=== PATIENT | female | born 1960 | race Caucasian/White ===

== ENCOUNTER 2021-04-18 10:05 | Outpatient (CLI) | payer MEDICARE, SELFPAY ==
--- NOTE | ~2021-04-18 | US_ITS ---
EXAMINATION: US soft tissue head and neck DATE: 04/18/2021 10:43 INDICATION: Right neck lump. TECHNIQUE: Multiple grayscale and Doppler ultrasound images of the neck were obtained. COMPARISON: None FINDINGS: There is no abnormal mass or lymphadenopathy in the patient's area of concern in right neck . IMPRESSION: 1. No abnormal mass or lymphadenopathy in the patient's area of concern in right neck. Reviewed, dictated and finalized at location A. IMPRESSION: 1. No abnormal mass or lymphadenopathy in the patient's area of concern in righ t neck.
== END 2021-04-18 10:06 ==
LOC: MICIMG 10:06
PROVIDERS: Visit Provider Internal Medicine
DX: R22.1 Localized swelling, mass and lump, neck (principal)
CPT/HCPCS: 76536

== ENCOUNTER 2021-04-25 11:40 | Outpatient (CLI) | payer MEDICARE, SELFPAY ==
--- NOTE | ~2021-04-25 | US_ITS ---
EXAMINATION: US thyroid EXAM DATE: 04/25/2021 11:57 INDICATION: History thyroid nodules. TECHNIQUE: Multiple grayscale and Doppler images of the thyroid were obtained (by a technologist who performed the scan) and subsequently reviewed. Individual nodules and recommendations may be reporte d in accordance with TI-RADS system as designated by the 2017 ACR White Paper TI-RADS committee. Comp jadyn is made to prior examination from 04/18/2021. FINDINGS: The right thyroid lobe measures 3.2 x 1.0 x 1.2 cm, the left measuring 4.5 x 1.2 x 1.3 cm. There is h eterogeneous thyroid echogenicity with expected amount of vascularity. Mildly heterogeneous region was measured, uncertain whether or not this is a discrete nodule. Dimensi ons obtained at 7 x 4 x 7 mm. IMPRESSION: 1. Heterogeneous thyroid parenchyma with possible right thyroid lobe nodule, likely benign. Return to clinical follow-up and if additional palpable abnormality develops a repeat ultrasound can be obtained. Reviewed, dictated and finalized at location A. IMPRESSION: 1. Heterogeneous thyroid parenchyma with possible right thyroid lobe nodule, l ikely benign. Return to clinical follow-up and if additional palpable abnormality develops a repeat ultrasound can be obtained.
== END 2021-04-25 11:41 ==
LOC: MICIMG 11:41
PROVIDERS: PCP Internal Medicine; Visit Provider Internal Medicine
DX: Z86.39 Personal history of other endocrine, nutritional and metabolic disease (principal)
CPT/HCPCS: 76536

== ENCOUNTER 2021-10-21 10:53 | Outpatient (CLI) | payer MEDICARE, SELFPAY ==
--- NOTE | ~2021-10-21 | XR_ITS ---
EXAMINATION: XR chest 2V EXAM DATE: 10/21/2021 11:11 INDICATION: Cough, COVID-19 virus infection . TECHNIQUE: Frontal and lateral projections of the chest obtained and reviewed. There is no prior abner dy for comparison. FINDINGS: The lungs are clear. There are no pleural effusions. The cardiomediastinal silhouette is within normal limits. There is no pneumothorax suspected. The bones and soft tissues are unremarkab le. IMPRESSION: No acute cardiopulmonary findings. Reviewed, dictated and finalized at location A. H BORING MACHINE OPERATOR
== END 2021-10-21 10:54 ==
PROVIDERS: PCP Internal Medicine; Visit Provider Internal Medicine
DX: U07.1 COVID-19 (principal); R05.9 Cough, unspecified
CPT/HCPCS: 71046

== ENCOUNTER 2021-12-17 13:07 | Outpatient (CLI) | payer MEDICARE, SELFPAY ==
--- NOTE | ~2021-12-17 | XR_ITS ---
EXAMINATION: XR ankle RT min 3V INDICATION: Right ankle pain TECHNIQUE: Four views of the right ankle are obtained. COMPARISON: None available FINDINGS: There is soft tissue swelling of ankle. Bone alignment is normal. There is no fracture. IMPRESSION: 1. Soft tissue swelling without acute osseous abnormality. Reviewed, dictated and finalized at location B. ORY SUPERVISOR
--- NOTE | ~2021-12-17 | XR_ITS ---
EXAMINATION: XR foot RT min 3V DATE: 12/17/2021 13:39 INDICATION: Right foot pain TECHNIQUE: Dorsoplantar, lateral, and 2 oblique views of the right foot were obtained. COMPARISON: None. FINDINGS: Bone alignment is normal. There is no fracture. There is mild osteoarthritis of several int erphalangeal joints. An approximately 3 mm linear radiopaque foreign body projects in the plantar sof t tissues adjacent to the proximal shaft of the third proximal phalanx. IMPRESSION: 1. No acute osseous abnormality. 2. 3 mm radiopaque foreign body projecting in the plantar soft tissues adjacent to the third proximal phalanx. Reviewed, dictated and finalized at location B. TE MANAGER
== END 2021-12-17 13:08 ==
PROVIDERS: PCP Internal Medicine; Visit Provider Internal Medicine
DX: M79.671 Pain in right foot (principal); M79.89 Other specified soft tissue disorders
CPT/HCPCS: 73610; 73630

== ENCOUNTER 2022-01-28 16:43 | Outpatient (CLI) | payer MEDICARE, SELFPAY ==
--- NOTE | ~2022-01-28 | XR_ITS ---
EXAMINATION: XR ankle LT min 3V DATE: 01/28/2022 17:31 INDICATION: Left foot and ankle pain TECHNIQUE: Anteroposterior, lateral, mortise, and additional oblique view of the ankle were obtained. COMPARISON: None. FINDINGS: There is no fracture, dislocation, or subluxation of the ankle. There is a fracture at the lateral base of the fifth metatarsal. IMPRESSION: 1. No acute osseous abnormality of the ankle. 2. Fracture at the lateral base of the fifth metatarsal. Reviewed, dictated and finalized at location F.
--- NOTE | ~2022-01-28 | XR_ITS ---
EXAMINATION: XR foot LT min 3V DATE: 01/28/2022 17:31 INDICATION: Left foot pain, initial encounter TECHNIQUE: Dorsoplantar, lateral, and 2 oblique views of the left foot were obtained. COMPARISON: None. FINDINGS: There is an acute, traumatic, closed, oblique, intra-articular fracture at the lateral base of the fifth metatarsal. There also appears to be an avulsion at the lateral aspect of the cuboid. N o additional fracture is identified. There is mild dorsal soft tissue swelling of the foot. IMPRESSION: 1. Fractures of the lateral base of the fifth metatarsal and lateral aspect of the cuboid. Reviewed, dictated and finalized at location F.
== END 2022-01-28 16:44 ==
PROVIDERS: PCP Internal Medicine; Visit Provider Internal Medicine
DX: S92.352A Displaced fracture of fifth metatarsal bone, left foot, initial encounter for closed fracture (principal)
CPT/HCPCS: 73610; 73630

== ENCOUNTER 2022-08-11 11:28 | Inpatient (IN) | payer MEDICARE, SELFPAY ==
--- NOTE | ~2022-08-11 | XR_ITS ---
EXAMINATION: XR barium swallow modified DATE: 08/13/2022 09:47 INDICATION: Dysphagia. TECHNIQUE: The patient was given barium-containing material of multiple consistencies to swallow by t he speech pathologist while I performed fluoroscopy. Fluoroscopy exposure time was 0.9 minutes. The n umber of fluoroscopy images saved to the PACS was 1. Dose-area product was 0.63 Gy-cm^2. FINDINGS: The oral, pharyngeal, and cervical/esophageal stages of the swallow are normal. IMPRESSION: 1. Normal modified barium swallow. 2. Please refer to the speech therapy report for recommendations. Reviewed, dictated and finalized at location A.
--- NOTE | ~2022-08-11 | XR_ITS ---
XR chest 2V DATE: 08/15/2022 08:20 INDICATION: Pneumonia TECHNIQUE: PA and lateral views COMPARISON: 08/11/2022 portable AP chest 08/2022 CT pulmonary scan FINDINGS: There is patchy infiltrate and/atelectasis at the right lung base and left lower lung, more prominent on the left. No pleural effusion or pulmonary vascular congestion or pneumothorax. Normal heart size. Osteopenia. IMPRESSION: Bilateral lower lung infiltrate and/atelectasis, left greater than right Reviewed, dictated and finalized at location A. EL MUCKER
--- NOTE | ~2022-08-11 | XR_ITS ---
EXAMINATION: XR chest 1V portable DATE: 08/11/2022 12:49 INDICATION: Cough and fever. TECHNIQUE: A single frontal view of the chest was obtained. COMPARISON: Chest 2 views 10/21/2021 FINDINGS: There is mild scarring at the lung apices. No pleural effusion or pneumothorax. The heart s ize is normal. IMPRESSION: 1. Mild scarring at the lung apices. Reviewed, dictated and finalized at location A.
--- NOTE | ~2022-08-11 | CT_ITS ---
EXAMINATION: CTA chest abdomen pelvis DATE: 08/11/2022 16:59 INDICATION: Hypoxia. Vomiting. Cough, fever, congestion. History of diabetes, hypertension TECHNIQUE: Computed tomography (CT) of the chest, abdomen and pelvis was performed with 100 CC Omnipa que 350 intravenous contrast. Automated exposure control and iterative reconstruction technique were employed. Exam dose: 443.49 mGy-cm total exam DLP. COMPARISON: 08/11/2022 portable AP chest FINDINGS: There is patchy bilateral lower lobe infiltrate and/or atelectasis. Consider bilateral pneumonia in a ddition to aspiration pneumonitis. Normal heart size. No pericardial or pleural effusion. No thoracic aortic aneurysm or dissection. No central pulmonary embolus. There is mild prominence of the precarinal lymph and to a greater extent subcarinal lymph nodes, like ly reactive. Small sliding hiatal hernia. Hepatic steatosis. No hepatic, splenic, pancreatic, and adrenal or renal space-occupying mass lesion is detected. There is atherosclerotic calcification of the abdominal aorta and iliac arteries but no abdominal aor tic aneurysm. The urinary bladder, uterus and adnexal areas are unremarkable. No bowel obstruction, bowel wall thickening, pneumatosis or intraperitoneal free air is detected. Small fat-containing umbilical hernia. No suspicious osteolytic or osteoblastic lesions. IMPRESSION: Patchy bilateral lower lobe infiltrate and/atelectasis. Consider bilateral pneumonia irma jah aspiration pneumonitis. Probable reactive mild precarinal and subcarinal lymph node prominence No thoracic or abdominal aortic aneurysm Hepatic steatosis No bowel obstruction or free air Reviewed, dictated and finalized at Location A. Reviewed, dictated and finalized at location A. IMPRESSION: Patchy bilateral lower lobe infiltrate and/atelectasis. Consider b ilateral pneumonia versus aspiration pneumonitis. Probable reactive mild precarinal and subcarinal lymph node prominence No thoracic or abdominal aortic aneurysm Hepatic steatosis No bowel obstruction or free air
[2022-08-11 11:35] VITALS: BP 114/49; PULSE 82; RESP 20; TEMP 36.3; O2SAT 94
--- NOTE | 2022-08-11 11:43 | ECG_ITS ---
Measurements Intervals [place] Rate: 81 P: 75 CA: 145 QRS: 5 QRSD: 93 T: 50 QT: 388 QTc: 451 Interpretive Statements SINUS RHYTHM BASELINE WANDER- V3, V6 NORMAL ECG NO PREVIOUS ECG AVAILABLE FOR COMPARISON Electronically Signed On 08-11-2022 12:56:07 CDT by Yuan Bailey D.O.
[2022-08-11 12:24] LABS: Basophils Percent Auto 0.3 % (0.2-1.2); Eosinophils Percent Auto 0.3 % (0-4.4); Hematocrit 40.2 % (37.0-47.0); Immature Granulocyte Absolute 0.05 K/mm3 (0.00-0.031); Immature Granulocyte Percent A 0.4 % (0-0.5); Lymphocytes Absolute Auto 1.43 K/mm3 (0.9-3.2); Lymphocytes Percent Auto 10.1 % (18.3-44.2); Mean Corpuscular HGB Conc 32.3 g/dl (32-36); Mean Corpuscular Hemoglobin 30.4 pg (26-34); Mean Corpuscular Volume 94.1 fl (80-100); Mean Platelet Volume 11.1 fl (7.4-10.4); Monocytes Absolute Auto 0.8 K/mm3 (0.1-0.6); Monocytes Percent Auto 5.7 % (2.6-8.5); Neutrophils Absolute Auto 11.8 K/mm3 (1.3-6.7); Neutrophils Percent Auto 83.2 % (45.5-73.1); Platelet Count Result 275 k/mm3 (150-375); Red Blood Count 4.27 M/mm3 (4.2-5.4); Red Cell Distribution Width 13.2 % (11.5-14.5); White Blood Count 14.1 K/mm3 (4.5-10.0)
[2022-08-11 12:34] LABS: Lactic Acid Reflex 1.1 mmol/L (0.7-2.0)
[2022-08-11 12:37] LABS: Partial Thromboplastin Time 28.7 SECONDS (22.3-36.8); Prothrombin Time 13.2 Seconds (11.1-14.7)
[2022-08-11 12:38] LABS: Alanine Aminotransferase 28 U/L (6-35); Albumin Level 4.7 g/dL (3.5-5.1); Alkaline Phosphatase 93 U/L (38-126); Anion Gap 22 mmol/L (8-16); Aspartate Amino Transferase 29 U/L (14-36); Bilirubin,Total 0.7 mg/dL (0.2-1.3); Blood Urea Nitrogen 13 mg/dL (7-17); CRP 3.7 mg/dL (<1.0); Carbon Dioxide 15 mmol/L (22-30); Chloride 99 mmol/L (98-107); Estimated CRCL calculation 67 ml/min; Estimated Glomerular Filt Rate > 60; Glucose 140 mg/dL (65-110); Potassium 3.8 mmol/L (3.4-5.0); Sodium 136 mmol/L (137-145)
[2022-08-11 12:45] LABS: Troponin I < 0.012 ng/mL (0.000-0.034)
--- NOTE | 2022-08-11 13:06 | ED.GENADULT ---
HPI - General Adult General Chief complaint: Weakness Stated complaint: NOT FEELING WELL , GENERALIZED WEAKNESS, COUGH Time Seen by Provider: 08/11/22 12:38 History of Present Illness HPI narrative: 62-year-old female presented to the emergency department evaluation of approximately 5 days of worsening fatigue with associated cough and shortness of breath. Patient did test herself for COVID on the first day of this and was negative. Patient is vaccinated against COVID and against influenza. Patient does have a new O2 requirement. Upon arrival to the emergency department patient was saturating in the 80s on room air. Related Data Home Medications Medication Instructions Recorded Confirmed atorvastatin 80 mg PO DAILY 08/11/22 08/11/22 bupropion HCl 75 mg tablet 150 mg PO DAILY 08/11/22 08/11/22 dapagliflozin 5 mg tablet (Farxiga) 5 mg PO DAILY 08/11/22 08/11/22 fluticasone propionate 50 50 mcg intranasal DAILY 08/11/22 08/11/22 mcg/actuation nasal spray,suspension insulin glargine 100 unit/mL 60 unit subcut DAILY 08/11/22 08/11/22 subcutaneous cartridge lisinopril 20 mg tablet 10 mg PO BID 08/11/22 08/11/22 metoprolol succinate 25 mg 25 mg PO DAILY 08/11/22 08/11/22 tablet,extended release 24 hr multivitamin 5 tablet PO DAILY 08/11/22 08/11/22 omeprazole 40 mg capsule,delayed 40 mg PO DAILY PRN Heartburn 08/11/22 08/11/22 release Allergies Allergy/AdvReac Type Severity Reaction Status Date / Time codeine AdvReac Nausea and Verified 08/11/22 18:21 Vomiting Review of Systems Review of Systems: CONSTITUTIONAL: Denies fever, chills, or sweats. EYES: Denies visual changes, redness, or discharge. ENT: Denies rhinorrhea, congestion, sore throat, or otalgia. CARDIOVASCULAR: Denies chest pain, palpitations, or edema. RESPIRATORY: See HPI GASTROINTESTINAL: Denies abdominal pain, nausea, vomiting, or diarrhea. GENITOURINARY: Denies dysuria or hematuria. SKIN: Denies rash or itching. MUSCULOSKELETAL: Denies back pain, joint pain, or myalgia. NEUROLOGIC: Denies headache, numbness, or weakness. [facility] Past Medical History Medical History (Updated 08/11/22 @ 16:04 by Yana Warner PA-C) delivery delivered Depression Diabetes Hypercholesteremia Hypertension Surgical History Surgical History (Updated 08/11/22 @ 15:02 by Yana Warner PA-C) H/O oophorectomy History of appendectomy Family History Family History Mother Heart disease Hypertension Father Heart disease Diabetes mellitus Hypertension Grandparent Diabetes mellitus Sibling Diabetes mellitus Social History Social History (Updated 08/11/22 @ 15:06 by Yana Warner PA-C) Smoking packs per day: 0 Smoking cigarettes per day: 0.0 Years smoked: 0 Smoking pack-years: 0.00 Smoking status: Never smoker Alcohol intake: never Substance use: never Has the Lack of Transportation Kept You From Medical Appointments or From Getting Medications?: No Within the Past 12 Months, Were You Worried Whether Your Food Would Run Out Before You Got Money to Buy More?: Never True What is Your Housing Situation Today?: I Have Housing Are You Worried That in the Next 2 Months, You May Not Have Your Own Housing to Live In?: No Do You Have Trouble Paying Your Heating Or Electricity Bill?: No Do You Have Trouble Paying For Medicines?: No Are You Currently Unemployed and Looking for Work?: No Highest Level of Education Completed: High School Diploma/GED Do You Have Trouble With Childcare or the Care of a Family Member?: No Living arrangements: with family Additional living arrangements comments: daughter and 1 grandchild Occupation/Education: retired Additional occupation/education comments: on SS Gender identity (if verbalized by the patient): Female Sexual Orientation (if Verbalized by the Patient): Straight or Heterosexual Spiritual care
[2022-08-11 13:48] LABS: Influenza A QL RT-PCR Negative (Negative); Influenza B QL RT-PCR Negative (Negative); SARS-CoV-2 RNA PCR Negative
[2022-08-11] MEDS: SODIUM CHLORIDE 0.9% IV 1,000 ML 999 ML IV CONT ×2 (14:11→15:42)
[2022-08-11 14:31] LABS: Appearance Urine Clear (Clear); Bilirubin Urine 2+ (Negative); Blood Urine Negative (Negative); Color Urine Yellow (Yellow); Glucose Urine UA 2+ mg/dL (Negative); Ketones Urine 4+ mg/dL (Negative); Leukocyte Esterase Ur Negative LEU/UL (Negative); Nitrate Urine Negative (Negative); Protein Urine 1+ mg/dL (Negative); Specific Grav Ur >= 1.030 (1.001-1.035); pH Urine 5.5 (5.0-9.0)
--- NOTE | 2022-08-11 14:35 | PM.IMHP ---
H&P: HPI History of Present Illness Date/Time: 08/11/22 14:35 Meds Home Medications and Allergies Allergies Allergy/AdvReac Type Severity Reaction Status Date / Time codeine AdvReac Nausea and Verified 08/11/22 14:15 Vomiting Vital Signs Vital Signs - 24 hr 08/11/22 11:35 Temperature 36.3 C L Pulse Rate 82 Respiratory Rate 20 Blood Pressure 114/49 L Pulse Oximetry 94 Oxygen Delivery Nasal Cannula Oxygen Flow Rate 4 H&P: Results Labs Labs: Short CBC 08/11/22 Range/Units 12:14 WBC 14.1 H (4.5-10.0) K/mm3 Hgb 13.0 (12.0-15.0) g/dL Hct 40.2 (37.0-47.0) % Plt Count 275 (150-375) k/mm3 BMP 08/11/22 12:14 Sodium 136 L Potassium 3.8 Chloride 99 Carbon Dioxide 15 L BUN 13 Creatinine 0.60 L Glucose 140 H Calcium 9.0 Cardiac Enzymes 08/11/22 Range/Units 12:14 Troponin I < 0.012 (0.000-0.034) ng/mL Liver Function 08/11/22 Range/Units 12:14 Total Bilirubin 0.7 (0.2-1.3) mg/dL AST 29 (14-36) U/L ALT 28 (6-35) U/L Alkaline Phosphatase 93 (38-126) U/L Albumin 4.7 (3.5-5.1) g/dL Urine 08/11/22 Range/Units 14:13 Urine Color Yellow (Yellow) Urine Appearance Clear (Clear) Urine pH 5.5 (5.0-9.0) Ur Specific [place] >= 1.030 (1.001-1.035) Urine Protein 1+ H (Negative) mg/dL Urine Glucose (UA) 2+ H (Negative) mg/dL
[2022-08-11 14:38] LABS: Bacteria Urine Trace /hpf; Mucus Urine Rare /lpf; Squamous Epithelial Cell Urine Occasional /hpf (Few); WBC Urine 0-3 /hpf
[2022-08-11 14:43] LABS: Add Urine Microscopic? YES
--- NOTE | 2022-08-11 14:49 | PM.IMHP ---
H&P: HPI History of Present Illness Date/Time: 08/11/22 14:49 Chief Complaint: cough, weakness Narrative: Bri Mendieta is a 62 yo female that presented to the ED with cough that started 5-6 days ago and is progressively worsening. She has been taking OTC cold and flu medication without relief. Associated symptoms include: headache, weakness, dizziness, fever, nasal congestion, abdominal pain, nausea, vomiting, decreased appetite. Symptoms are worse at night. Patient states that this is the worse I've ever felt in my life . Abdominal pain and nausea wax and wane and pt is unsure if it was from not eating or from medication. Review of Systems Constitutional: Constitutional: Reports body ache(s), Reports chills, Reports difficulty sleeping, Reports fatigue, Reports lethargy and Reports weakness ENT: Denies dysphagia, Reports nasal congestion and Reports nasal discharge Cardiovascular: Cardiovascular: Reports chest pain, Denies pedal edema, Denies leg edema, Reports lightheadedness and Reports palpitations Respiratory: Respiratory: Reports chest congestion, Reports cough, Reports dyspnea and Reports wheezing Gastrointestinal: Gastrointestinal: Denies constipation, Denies diarrhea, Reports nausea and Reports vomiting Genitourinary: Genitourinary: Denies nocturia, Denies dysuria, Reports urinary incontinence and Denies urinary urgency [facility] Past Medical History Medical History (Updated 08/11/22 @ 16:04 by Yana Warner PA-C) delivery delivered Depression Diabetes Hypercholesteremia Hypertension Surgical History Surgical History (Updated 08/11/22 @ 15:02 by Yana Warner PA-C) H/O oophorectomy History of appendectomy Family History Family History (Updated 08/11/22 @ 15:03 by Yana Warner PA-C) Mother Heart disease Hypertension Father Heart disease Diabetes mellitus Hypertension Grandparent Diabetes mellitus Sibling Diabetes mellitus Social History Social History (Updated 08/11/22 @ 15:06 by Yana Warner PA-C) Smoking packs per day: 0 Smoking cigarettes per day: 0.0 Years smoked: 0 Smoking pack-years: 0.00 Smoking status: Never smoker Alcohol intake: never Has the Lack of Transportation Kept You From Medical Appointments or From Getting Medications?: Yes Within the Past 12 Months, Were You Worried Whether Your Food Would Run Out Before You Got Money to Buy More?: Never True What is Your Housing Situation Today?: I Have Housing Are You Worried That in the Next 2 Months, You May Not Have Your Own Housing to Live In?: No Do You Have Trouble Paying Your Heating Or Electricity Bill?: No Do You Have Trouble Paying For Medicines?: No Are You Currently Unemployed and Looking for Work?: No Highest Level of Education Completed: Grade School Do You Have Trouble With Childcare or the Care of a Family Member?: No Living arrangements: with family Additional living arrangements comments: daughter and 1 grandchild Occupation/Education: retired Additional occupation/education comments: on SS Gender identity (if verbalized by the patient): Female Sexual Orientation (if Verbalized by the Patient): Straight or Heterosexual Spiritual care concerns: No Meds Home Medications and Allergies Allergies Allergy/AdvReac Type Severity Reaction Status Date / Time codeine AdvReac Nausea and Verified 08/11/22 14:15 Vomiting Vital Signs Vital Signs - 24 hr 08/11/22 11:35 Temperature 97.4 F L Pulse Rate 82 Respiratory Rate 20 Blood Pressure 114/49 L Pulse Oximetry 94 Oxygen Delivery Nasal Cannula Oxygen Flow Rate 4 Exam Const: Other: Patient laying in bed and appears acutely ill. HENMT: Face/Nose/Sinus: Normal nares present Other: tacky mucous membranes Eyes: General: appearance normal, both eyes and all related structures Sclera: sclerae normal EOM: EOMs intact bilaterally Neck: Neck: supple and no JVD Lymphati
[2022-08-11 15:02] LABS: RSV RNA, RT-PCR Negative (Negative)
[2022-08-11 16:19] LABS: Alveolar/Arterial O2 Gradient 124.9 mmHg; Base Excess ABG -10.9 mEq/l (+/-2.0); Carboxyhemoglobin 0.3 % THb (0-2.0); Fractional Inspired Oxygen 32 %; HCO3 ABG 13.7 mEq/l (22.0-26.0); Methemoglobin ABG 0.1 %THb (0-1.5); Oxygen Content ABG 15.8 %vol (16.0-22.0); Oxygen Saturation ABG 93.4 % (95.0-100.0); Oxyhemoglobin 91.6 % THb (90.0-100.0); PCO2 ABG 27.4 mmHg (35.0-45.0); PO2 ABG 71.2 mmHg (80.0-100.0); PO2 FiO2 Ratio Arterial Blood 2.22 %; Total Hemoglobin 12.2 g/dL (12.0-18.0); pH ABG 7.318 (7.350-7.450)
[2022-08-11 16:21] LABS: Device NASAL CANNULA; Modified Allen's Test Pass; Site Drawn RIGHT RADIAL
[2022-08-11 16:44] LABS: Lactic Acid Reflex 1.2 mmol/L (0.7-2.0)
[2022-08-11 16:56] LABS: NT Pro B Type Natriuretic Pept 193 pg/mL (5-100)
[2022-08-11 17:17] VITALS: O2SAT 98
[2022-08-11 17:29] LABS: Procalcitonin 0.2 ng/mL
[2022-08-11] MEDS: ONDANSETRON INJ 4 MG/2 ML VIAL IV PUSH (17:46)
[2022-08-11] MEDS: ENOXAPARIN 40 MG/0.4 ML SYRINGE SUB-Q (17:46)
[2022-08-11 18:09] VITALS: BMI 26.9
[2022-08-11] MEDS: methylPREDNISolone SOD SUCC 125 MG VIAL IV PUSH (18:23)
[2022-08-11 18:30] VITALS: O2SAT 98
--- NOTE | 2022-08-11 18:53 | ADMGEN ---
This patient, Bri Mendieta, was admitted to Medical Room 244-. Patient/family oriented to hospital policies and general routines including ID bracelet, bed and alarms, visiting hours, pain management, procedures, bathroom and other care routines, personal items, smoking policy, room service/diet, and visiting hours. Information on how to activate the Rapid Response Team has been discussed. Patient/Family are encouraged to report perceived risks to care and to ask questions if they do not understand what they are told or what they should do.
[2022-08-11 21:05] VITALS: PULSE 88; RESP 18; O2SAT 92
[2022-08-11] MEDS: ALBUTEROL SULFATE NEB 2.5 MG/3 ML INH INHALATION (21:05)
[2022-08-11] MEDS: IPRATROPIUM BR 0.02% INH SOLN 0.5 MG/2.5 ML VIAL INHALATION (21:05)
[2022-08-11 21:15] VITALS: PULSE 91; RESP 18
[2022-08-11] MEDS: methylPREDNISolone SOD SUCC 125 MG VIAL 60 MG IV PUSH (21:54)
[2022-08-11 23:15] VITALS: BP 116/55; PULSE 86; RESP 16; TEMP 36.4; O2SAT 94
[2022-08-12] VITALS (16 sets, daily range): BP systolic 105–113; BP diastolic 44–60; PULSE 78–87; RESP 16–18; TEMP 36.1–36.6; O2SAT 94–97
[2022-08-12] MEDS: IPRATROPIUM BR 0.02% INH SOLN 0.5 MG/2.5 ML VIAL INHALATION ×4 (03:08→20:00)
[2022-08-12] MEDS: ALBUTEROL SULFATE NEB 2.5 MG/3 ML INH INHALATION ×4 (03:08→20:00)
[2022-08-12] MEDS: methylPREDNISolone SOD SUCC 125 MG VIAL 60 MG IV PUSH ×3 (05:38→21:29)
[2022-08-12 06:07] LABS: Basophils Absolute Auto 0.1 K/mm3 (0.0-0.1); Basophils Percent Auto 0.5 % (0.2-1.2); Hematocrit 38.1 % (37.0-47.0); Hemoglobin 11.8 g/dL (12.0-15.0); Immature Granulocyte Absolute 0.04 K/mm3 (0.00-0.031); Immature Granulocyte Percent A 0.3 % (0-0.5); Lymphocytes Absolute Auto 0.89 K/mm3 (0.9-3.2); Lymphocytes Percent Auto 7.3 % (18.3-44.2); Mean Corpuscular Hemoglobin 30.4 pg (26-34); Mean Corpuscular Volume 98.2 fl (80-100); Monocytes Absolute Auto 0.3 K/mm3 (0.1-0.6); Monocytes Percent Auto 2.3 % (2.6-8.5); Neutrophils Percent Auto 89.6 % (45.5-73.1); Platelet Count Result 267 k/mm3 (150-375); Red Blood Count 3.88 M/mm3 (4.2-5.4); Red Cell Distribution Width 13.6 % (11.5-14.5); White Blood Count 12.2 K/mm3 (4.5-10.0)
[2022-08-12 06:14] LABS: Alanine Aminotransferase 23 U/L (6-35); Alkaline Phosphatase 75 U/L (38-126); Anion Gap 25 mmol/L (8-16); Aspartate Amino Transferase 26 U/L (14-36); Bilirubin,Total 0.6 mg/dL (0.2-1.3); Blood Urea Nitrogen 19 mg/dL (7-17); Calcium 8.1 mg/dL (8.4-10.2); Carbon Dioxide 7 mmol/L (22-30); Chloride 104 mmol/L (98-107); Estimated CRCL calculation 46 ml/min; Estimated Glomerular Filt Rate > 60; Glucose 295 mg/dL (65-110); Magnesium 2.4 mg/dL (1.6-2.3); Potassium 4.3 mmol/L (3.4-5.0); Sodium 136 mmol/L (137-145)
[2022-08-12 08:30] LABS: Lactic Acid Reflex 1.7 mmol/L (0.7-2.0)
[2022-08-12] MEDS: ENOXAPARIN 40 MG/0.4 ML SYRINGE SUB-Q (08:49)
[2022-08-12] MEDS: PANTOPRAZOLE SODIUM IV 40 MG VIAL IV PUSH (08:50)
[2022-08-12] MEDS: AMPICILLIN SULB 3 GM/NS 100 ML 3 GM/100 ML VIAL IVPB ×3 (08:50→18:35)
[2022-08-12] MEDS: SODIUM BICARBONATE 8.4% 150 MEQ in DEXTROSE 5% 1,000 ML 950 ML 75 MEQ IV CONT (09:35)
--- NOTE | 2022-08-12 09:59 | PCSTNOTE ---
Please refer to the Bedside Swallow Evaluation in the EMR. Please note, silent aspiration cannot be ruled out at bedside.
[2022-08-12 10:42] LABS: Glucose Point of Care 430 mg/dl (65-105)
[2022-08-12] MEDS: buPROPion HCL XL (24 HR) 150 MG TABCR PO (10:58)
--- NOTE | 2022-08-12 11:03 | P.PNIM_ITS ---
Progress Note: A&P Assessment and Plan (1) Acute respiratory failure: Code(s): J96.00 - Acute respiratory failure, unspecified whether with hypoxia or hypercapnia Status: Acute Assessment and Plan: * pt states she is feeling better today compared to day of admission * pt no longer tripoding * pt on 2L of O2; O2 saturation of 96% * pt still experiencing some labored breathing and unable to complete full sentences but has improved from admission * XR chest showed scarring in lung apices * CTA results = bilateral lobar pneumonia vs. aspiration pneumonia * ABG results = anion gap metabolic acidosis * blood cultures pending * supplemental oxygen weaned to maintain a saturation >93% * continue to trend O2 saturation * adjust therapy accordingly (2) Pneumonia: Code(s): J18.9 - Pneumonia, unspecified organism Status: Acute Assessment and Plan: * CTA results = bilateral lobar pneumonia vs. aspiration pneumonia * pt put on unasyn 3 Gm/Ns 100 mls @200 mls/hr IVPB Q6hr and azithromycin 500 mg in 150 mls @250 mls/hr IVPB Q24h4 * awaiting sputum cultures * speech therapy consulted, due to possibility of aspiration pneumonia, recommended barium swallow * barium swallow results pending * recheck labs in the AM (3) High anion gap metabolic acidosis: Code(s): E87.29 - Other acidosis Status: Acute Assessment and Plan: * ABG reveals high anion gap metabolic acidosis * prescribed sodium bicarbonate 150 meq in dextrose 1,100 mls @ 75 mls/hr IV cont * high anion gap metabolic acidosis likely caused by infection * Sodium bicarbonate in D5 discontinued due to patients hyperglycemia. Rechecking labs. Will likely restart NaHCO3 in sterile water if HCO3 is still low. * HCO3 was 10 on recheck. Prescribed NaHCO3 150 meq in sterile water 1,100 mls @ 50 mls/hr IV CONT. * plan to recheck labs in the AM (4) Nausea & vomiting: Code(s): R11.2 - Nausea with vomiting, unspecified Status: Acute Assessment and Plan: * pt feeling better * prescribed zofran 4 mg PRN (5) Dizziness and giddiness: Code(s): R42 - Dizziness and giddiness Status: Acute Assessment and Plan: * pt feeling better today (6) Dysuria: Code(s): R30.0 - Dysuria Status: Acute Assessment and Plan: * pt expressed she believes this is due to ketones in urine * going to recheck urine (7) Diabetes: Code(s): E11.9 - Type 2 diabetes mellitus without complications Status: Acute Assessment and Plan: * pt receiving Lantus 10 units daily and NovoLog 1-6 units SUB-Q TIDWM * q6hr bedside glucose monitoring * pt given 5 units of NovoLog SUB-Q at 1115 due to BG @ 430 * recheck BG after 1 hour was 404 * pt given 6 units of NovoLog SUB-Q and 1L bolus of NS at 1230 due to BG @ 404 * recheck BG after 1 hour was 375 * reassess after NS bolus is finished * BG after NS bolus is 315 * plan to give 10 units of NovoLog SUB-Q (8) Hypertension: Code(s): I10 - Essential (primary) hypertension Status: Acute Assessment and Plan: * due to patient low BP in the hospital, her lisinopril was held. * pt still taking metoprolol * BP monitoring accordingly
--- NOTE | 2022-08-12 11:03 | PM.IMPN ---
Progress Note: A&P Assessment and Plan (1) Acute respiratory failure: Code(s): J96.00 - Acute respiratory failure, unspecified whether with hypoxia or hypercapnia Status: Acute Assessment and Plan: pt states she is feeling better today compared to day of admission pt no longer tripoding pt on 2L of O2; O2 saturation of 96% pt still experiencing some labored breathing and unable to complete full sentences but has improved from admission XR chest showed scarring in lung apices CTA results = bilateral lobar pneumonia vs. aspiration pneumonia ABG results = anion gap metabolic acidosis blood cultures pending supplemental oxygen weaned to maintain a saturation >93% continue to trend O2 saturation adjust therapy accordingly (2) Pneumonia: Code(s): J18.9 - Pneumonia, unspecified organism Status: Acute Assessment and Plan: CTA results = bilateral lobar pneumonia vs. aspiration pneumonia pt put on unasyn 3 Gm/Ns 100 mls @200 mls/hr IVPB Q6hr and azithromycin 500 mg in 150 mls @250 mls/hr IVPB Q24h4 awaiting sputum cultures speech therapy consulted, due to possibility of aspiration pneumonia, recommended barium swallow barium swallow results pending recheck labs in the AM (3) High anion gap metabolic acidosis: Code(s): E87.29 - Other acidosis Status: Acute Assessment and Plan: ABG reveals high anion gap metabolic acidosis prescribed sodium bicarbonate 150 meq in dextrose 1,100 mls @ 75 mls/hr IV cont high anion gap metabolic acidosis likely caused by infection Sodium bicarbonate in D5 discontinued due to patients hyperglycemia. Rechecking labs. Will likely restart NaHCO3 in sterile water if HCO3 is still low. HCO3 was 10 on recheck. Prescribed NaHCO3 150 meq in sterile water 1,100 mls @ 50 mls/hr IV CONT. plan to recheck labs in the AM (4) Nausea & vomiting: Code(s): R11.2 - Nausea with vomiting, unspecified Status: Acute Assessment and Plan: pt feeling better prescribed zofran 4 mg PRN (5) Dizziness and giddiness: Code(s): R42 - Dizziness and giddiness Status: Acute Assessment and Plan: pt feeling better today (6) Dysuria: Code(s): R30.0 - Dysuria Status: Acute Assessment and Plan: pt expressed she believes this is due to ketones in urine going to recheck urine (7) Diabetes: Code(s): E11.9 - Type 2 diabetes mellitus without complications Status: Acute Assessment and Plan: pt receiving Lantus 10 units daily and NovoLog 1-6 units SUB-Q TIDWM q6hr bedside glucose monitoring pt given 5 units of NovoLog SUB-Q at 1115 due to BG @ 430 recheck BG after 1 hour was 404 pt given 6 units of NovoLog SUB-Q and 1L bolus of NS at 1230 due to BG @ 404 recheck BG after 1 hour was 375 reassess after NS bolus is finished BG after NS bolus is 315 plan to give 10 units of NovoLog SUB-Q (8) Hypertension: Code(s): I10 - Essential (primary) hypertension Status: Acute Assessment and Plan: due to patient low BP in the hospital, her lisinopril was held. pt still taking metoprolol BP monitoring accordingly (9) GERD (gastroesophageal reflux disease): Code(s): K21.9 - Gastro-esophageal reflux disease without esophagitis Status: Acute Assessment and Plan: protonix 40 mg IVPB qd Time Spent With Patient Time with patient: Greater than 35 minutes Subjective Date/time seen: 08/12/22 11:03 Interval history: Patient is resting comfortably in bed. She is experiencing some shortness of breath while walking and talking. Review of Systems Constitutional: Constitutional: Reports lethargy and Reports weakness ENT: Reports dysphagia Comments: Having some dysphagia while solid foods. Has had this problem
[2022-08-12] MEDS: INSULIN GLARGINE (*BKC) 100 UNITS/ML 10 UNITS SUB-Q (11:05)
[2022-08-12] MEDS: ATORVASTATIN 40 MG TABLET 80 MG PO (11:05)
[2022-08-12] MEDS: INSULIN ASPART (*BKC) 100 UNITS/ML SUB-Q ×2 (11:16→17:23)
[2022-08-12 12:09] LABS: Glucose Point of Care 404 mg/dl (65-105)
[2022-08-12] MEDS: INSULIN ASPART (*BKC) 100 UNITS/ML 6 UNITS SUB-Q (13:18)
[2022-08-12] MEDS: SODIUM CHLORIDE 0.9% IV 1,000 ML 500 ML IV CONT (13:20)
[2022-08-12 14:17] LABS: Glucose Point of Care 375 mg/dl (65-105)
--- NOTE | 2022-08-12 14:24 | PC.NURSE ---
On 08/12/22, the student, [Helen Yoon], provided care and completed [facility] documentation on this patient. I have reviewed the student's documentation and agree with the findings.
[2022-08-12 14:55] LABS: Anion Gap 20 mmol/L (8-16); Blood Urea Nitrogen 21 mg/dL (7-17); Calcium 8.1 mg/dL (8.4-10.2); Carbon Dioxide 10 mmol/L (22-30); Chloride 104 mmol/L (98-107); Estimated CRCL calculation 41 ml/min; Estimated Glomerular Filt Rate 56; Glucose 370 mg/dL (65-110); Potassium 4.2 mmol/L (3.4-5.0); Sodium 134 mmol/L (137-145)
[2022-08-12 15:47] LABS: Glucose Point of Care 315 mg/dl (65-105)
[2022-08-12] MEDS: INSULIN ASPART (*BKC) 100 UNITS/ML 10 UNITS SUB-Q (16:09)
[2022-08-12 16:59] LABS: Glucose Point of Care 330 mg/dl (65-105)
[2022-08-12] MEDS: SODIUM BICARBONATE 8.4% 150 MEQ in WATER, STERILE FOR INJECTION 950 ML 50 MEQ IV CONT (17:20)
[2022-08-12] MEDS: INSULIN GLARGINE (*BKC) 100 UNITS/ML 20 UNITS SUB-Q (17:25)
[2022-08-12 18:19] LABS: Appearance Urine Clear (Clear); Bilirubin Urine 1+ (Negative); Blood Urine Negative (Negative); Color Urine Yellow (Yellow); Glucose Urine UA 2+ mg/dL (Negative); Ketones Urine 4+ mg/dL (Negative); Leukocyte Esterase Ur Negative LEU/UL (NEGATIVE); Nitrate Urine Negative (Negative); Protein Urine 1+ mg/dL (Negative); Specific Grav Ur >= 1.030 (1.001-1.035); Urobilinogen Urine 0.2 mg/dL (<2.0); pH Urine 5.5 (5.0-9.0)
[2022-08-12 18:22] LABS: Mucus Urine Rare /lpf; Squamous Epithelial Cell Urine Moderate /hpf (Few); WBC Urine 0-3 /hpf (0-3)
[2022-08-12 18:47] LABS: Add Urine Microscopic? YES
[2022-08-12 22:43] LABS: Glucose Point of Care 237 mg/dl (65-105)
[2022-08-13] VITALS (15 sets, daily range): BP systolic 103–120; BP diastolic 48–55; PULSE 72–96; RESP 16–18; TEMP 36.2–36.4; O2SAT 92–98
[2022-08-13] MEDS: AMPICILLIN SULB 3 GM/NS 100 ML 3 GM/100 ML VIAL IVPB ×5 (00:53→22:56)
[2022-08-13] MEDS: IPRATROPIUM BR 0.02% INH SOLN 0.5 MG/2.5 ML VIAL INHALATION ×4 (02:00→20:09)
[2022-08-13] MEDS: ALBUTEROL SULFATE NEB 2.5 MG/3 ML INH INHALATION ×4 (02:00→20:09)
[2022-08-13 04:45] LABS: Glucose Point of Care 231 mg/dl (65-105)
[2022-08-13 05:52] LABS: Basophils Percent Auto 0.2 % (0.2-1.2); Hematocrit 33.6 % (37.0-47.0); Hemoglobin 11.2 g/dL (12.0-15.0); Immature Granulocyte Absolute 0.06 K/mm3 (0.00-0.031); Immature Granulocyte Percent A 0.5 % (0-0.5); Lymphocytes Absolute Auto 1.02 K/mm3 (0.9-3.2); Lymphocytes Percent Auto 8.6 % (18.3-44.2); Mean Corpuscular HGB Conc 33.3 g/dl (32-36); Mean Corpuscular Hemoglobin 30.1 pg (26-34); Mean Corpuscular Volume 90.3 fl (80-100); Mean Platelet Volume 10.5 fl (7.4-10.4); Monocytes Absolute Auto 0.3 K/mm3 (0.1-0.6); Monocytes Percent Auto 2.9 % (2.6-8.5); Neutrophils Absolute Auto 10.4 K/mm3 (1.3-6.7); Neutrophils Percent Auto 87.8 % (45.5-73.1); Platelet Count Result 281 k/mm3 (150-375); Red Blood Count 3.72 M/mm3 (4.2-5.4); Red Cell Distribution Width 13.4 % (11.5-14.5); White Blood Count 11.8 K/mm3 (4.5-10.0)
[2022-08-13 06:07] LABS: Alanine Aminotransferase 17 U/L (6-35); Albumin Level 3.5 g/dL (3.5-5.1); Alkaline Phosphatase 74 U/L (38-126); Anion Gap 18 mmol/L (8-16); Aspartate Amino Transferase 18 U/L (14-36); Bilirubin,Total 0.4 mg/dL (0.2-1.3); Blood Urea Nitrogen 16 mg/dL (7-17); Calcium 8.1 mg/dL (8.4-10.2); Carbon Dioxide 17 mmol/L (22-30); Chloride 103 mmol/L (98-107); Estimated CRCL calculation 58 ml/min; Estimated Glomerular Filt Rate > 60; Glucose 217 mg/dL (65-110); Magnesium 2.6 mg/dL (1.6-2.3); Potassium 3.9 mmol/L (3.4-5.0); Sodium 138 mmol/L (137-145)
[2022-08-13] MEDS: methylPREDNISolone SOD SUCC 125 MG VIAL 60 MG IV PUSH ×3 (06:25→22:23)
[2022-08-13] MEDS: INSULIN ASPART (*BKC) 100 UNITS/ML SUB-Q ×3 (06:33→17:19)
[2022-08-13 06:41] LABS: Glucose Point of Care 216 mg/dl (65-105)
--- NOTE | 2022-08-13 08:13 | P.PNIM_ITS ---
Progress Note: A&P Assessment and Plan (1) Acute respiratory failure: Code(s): J96.00 - Acute respiratory failure, unspecified whether with hypoxia or hypercapnia Status: Acute Assessment and Plan: 08/13/22 * pt states she is feeling better today compared to yesterday * pt no longer tripoding * pt on 2L of O2; O2 saturation of 93% * Pt is no longer experiencing labored breathing and is able to complete full sentences. She is experiencing shortness of breath with ambulation but this has also improved since yesterday. * XR chest showed scarring in lung apices * CTA results = bilateral lobar pneumonia vs. aspiration pneumonia * ABG results = anion gap metabolic acidosis * blood cultures pending * supplemental oxygen weaned to maintain a saturation >93% * continue to trend O2 saturation * adjust therapy accordingly (2) Pneumonia: Code(s): J18.9 - Pneumonia, unspecified organism Status: Acute Assessment and Plan: 08/13/22 * CTA results = bilateral lobar pneumonia vs. aspiration pneumonia * pt put on unasyn 3 Gm/Ns 100 mls @200 mls/hr IVPB Q6hr and azithromycin 500 mg in 150 mls @250 mls/hr IVPB Q24h4 * barium swallow results pending * pt's WBC are trending down * preliminary sputum culture after 48 hrs reveal no growth * blood cultures pending * overnight pt was prescribed nebulizer treatment of Ipratropium [place] 0.5 mg Q6HRT and Solu-Medrol 60 mg IV push Q8hr. Patients BG will be monitored closely with steroid treatment. (3) High anion gap metabolic acidosis: Code(s): E87.29 - Other acidosis Status: Acute Assessment and Plan: 08/12/22 * ABG reveals high anion gap metabolic acidosis, anion gap of 25 * prescribed sodium bicarbonate 150 meq in dextrose 1,100 mls @ 75 mls/hr IV cont * high anion gap metabolic acidosis likely caused by infection, lactate within normal limits * Sodium bicarbonate in D5 discontinued due to patients hyperglycemia. Rechecking labs. Will likely restart NaHCO3 in sterile water if HCO3 is still low. * HCO3 was 10 on recheck. Prescribed NaHCO3 150 meq in sterile water 1,100 mls @ 50 mls/hr IV CONT. * plan to recheck labs in the AM 08/13/22 * AM labs reveal bicarb at 17 and anion gap trending down * Plan to continue monitoring, discontinuing bicarb and will reassess this afternoon (4) Nausea & vomiting: Code(s): R11.2 - Nausea with vomiting, unspecified Status: Acute Assessment and Plan: 08/13/22 * pt feeling better * prescribed zofran 4 mg PRN (5) Dizziness and giddiness: Code(s): R42 - Dizziness and giddiness Status: Acute Assessment and Plan: 08/13/22 * pt states this has resolved. (6) Dysuria: Code(s): R30.0 - Dysuria Status: Acute Assessment and Plan: 08/13/22 * Patients urine is unchanged from admission * no evidence of UTI (7) Diabetes: Code(s): E11.9 - Type 2 diabetes mellitus without complications Status: Acute Assessment and Plan: 08/12/22 * pt receiving Lantus 10 units daily and NovoLog 1-6 units SUB-Q TIDWM * q6hr bedside glucose monitoring * pt given 5 units of NovoLog SUB-Q at 1115 due to BG @ 430 * recheck BG after 1 hour was 404 * pt given 6 units of NovoLog SUB-Q and 1L bolus of NS at 1
--- NOTE | 2022-08-13 08:13 | PM.IMPN ---
Progress Note: A&P Assessment and Plan (1) Acute respiratory failure: Code(s): J96.00 - Acute respiratory failure, unspecified whether with hypoxia or hypercapnia Status: Acute Assessment and Plan: 08/13/22 pt states she is feeling better today compared to yesterday pt no longer tripoding pt on 2L of O2; O2 saturation of 93% Pt is no longer experiencing labored breathing and is able to complete full sentences. She is experiencing shortness of breath with ambulation but this has also improved since yesterday. XR chest showed scarring in lung apices CTA results = bilateral lobar pneumonia vs. aspiration pneumonia ABG results = anion gap metabolic acidosis blood cultures pending supplemental oxygen weaned to maintain a saturation >93% continue to trend O2 saturation adjust therapy accordingly (2) Pneumonia: Code(s): J18.9 - Pneumonia, unspecified organism Status: Acute Assessment and Plan: 08/13/22 CTA results = bilateral lobar pneumonia vs. aspiration pneumonia pt put on unasyn 3 Gm/Ns 100 mls @200 mls/hr IVPB Q6hr and azithromycin 500 mg in 150 mls @250 mls/hr IVPB Q24h4 barium swallow results pending pt's WBC are trending down preliminary sputum culture after 48 hrs reveal no growth blood cultures pending overnight pt was prescribed nebulizer treatment of Ipratropium [place] 0.5 mg Q6HRT and Solu-Medrol 60 mg IV push Q8hr. Patients BG will be monitored closely with steroid treatment. (3) High anion gap metabolic acidosis: Code(s): E87.29 - Other acidosis Status: Acute Assessment and Plan: 08/12/22 ABG reveals high anion gap metabolic acidosis, anion gap of 25 prescribed sodium bicarbonate 150 meq in dextrose 1,100 mls @ 75 mls/hr IV cont high anion gap metabolic acidosis likely caused by infection, lactate within normal limits Sodium bicarbonate in D5 discontinued due to patients hyperglycemia. Rechecking labs. Will likely restart NaHCO3 in sterile water if HCO3 is still low. HCO3 was 10 on recheck. Prescribed NaHCO3 150 meq in sterile water 1,100 mls @ 50 mls/hr IV CONT. plan to recheck labs in the AM 08/13/22 AM labs reveal bicarb at 17 and anion gap trending down Plan to continue monitoring, discontinuing bicarb and will reassess this afternoon (4) Nausea & vomiting: Code(s): R11.2 - Nausea with vomiting, unspecified Status: Acute Assessment and Plan: 08/13/22 pt feeling better prescribed zofran 4 mg PRN (5) Dizziness and giddiness: Code(s): R42 - Dizziness and giddiness Status: Acute Assessment and Plan: 08/13/22 pt states this has resolved. (6) Dysuria: Code(s): R30.0 - Dysuria Status: Acute Assessment and Plan: 08/13/22 Patients urine is unchanged from admission no evidence of UTI (7) Diabetes: Code(s): E11.9 - Type 2 diabetes mellitus without complications Status: Acute Assessment and Plan: 08/12/22 pt receiving Lantus 10 units daily and NovoLog 1-6 units SUB-Q TIDWM q6hr bedside glucose monitoring pt given 5 units of NovoLog SUB-Q at 1115 due to BG @ 430 recheck BG after 1 hour was 404 pt given 6 units of NovoLog SUB-Q and 1L bolus of NS at 1230 due to BG @ 404 recheck BG after 1 hour was 375 reassess after NS bolus is finished BG after NS bolus is 315 plan to give 10 units of NovoLog SUB-Q 08/13/22 Overnight patient was changed to Lantus 20 units BID NovoLog 3-6 units SUB-Q Q6HR Patients morning glucose was 216 and stable Plan to continue to monitor throughout the day Patient put on diabetic diet after passing speech therapy evaluation (8) Hypertension: Code(s): I10 - Essential (primary) hypertension Status: Chronic Assessment and Plan: 08/13/22 due to patient low BP in the hospital, her lisinopril
[2022-08-13] MEDS: IPRATROPIUM BR 0.02% INH SOLN 0.5 MG/2.5 ML VIAL (08:38)
[2022-08-13] MEDS: METOPROLOL SUCCINATE EXT REL 12.5 MG TABCR PO (09:56)
[2022-08-13] MEDS: ENOXAPARIN 40 MG/0.4 ML SYRINGE SUB-Q (09:57)
[2022-08-13] MEDS: ATORVASTATIN 40 MG TABLET 80 MG PO (09:57)
[2022-08-13] MEDS: buPROPion HCL XL (24 HR) 150 MG TABCR PO (09:57)
[2022-08-13] MEDS: INSULIN GLARGINE (*BKC) 100 UNITS/ML 20 UNITS SUB-Q (09:58)
[2022-08-13] MEDS: PANTOPRAZOLE SODIUM IV 40 MG VIAL IV PUSH (09:58)
--- NOTE | 2022-08-13 10:51 | PCSTNOTE ---
Modified barium swallow study completed. Patient demonstrated swallowing function within normal limits with consistencies tested, including thin, mildly thick, pureed, mixed, and solid. No penetration or aspiration observed. Recommend: Level 6 diet (soft and bite sized) to make chewing and eating easier with patient's level of weakness. No speech therapy recommended. Thank you for the referral of this patient.
[2022-08-13 12:06] LABS: Glucose Point of Care 208 mg/dl (65-105)
--- NOTE | 2022-08-13 13:17 | PC.NURSE ---
On 08/13/22, the student, [Helen Yoon], provided care and completed [facility] documentation on this patient. I have reviewed the student's documentation and agree with the findings.
[2022-08-13 15:43] LABS: Anion Gap 15 mmol/L (8-16); Blood Urea Nitrogen 19 mg/dL (7-17); Carbon Dioxide 19 mmol/L (22-30); Chloride 101 mmol/L (98-107); Estimated CRCL calculation 46 ml/min; Estimated Glomerular Filt Rate > 60; Glucose 340 mg/dL (65-110); Potassium 3.3 mmol/L (3.4-5.0); Sodium 135 mmol/L (137-145)
[2022-08-13] MEDS: POTASSIUM CHLORIDE 20 MEQ TABLET 40 MEQ PO (16:05)
[2022-08-13 17:10] LABS: Glucose Point of Care 258 mg/dl (65-105)
[2022-08-13] MEDS: SODIUM BICARBONATE 8.4% 150 MEQ in WATER, STERILE FOR INJECTION 950 ML 50 MEQ IV CONT (17:19)
[2022-08-13] MEDS: INSULIN GLARGINE (*BKC) 100 UNITS/ML 30 UNITS SUB-Q (17:19)
[2022-08-13 22:17] LABS: Glucose Point of Care 196 mg/dl (65-105)
[2022-08-14] VITALS (8 sets, daily range): BP systolic 132–150; BP diastolic 47–68; PULSE 81–107; RESP 16–18; TEMP 36.1–36.9; O2SAT 93–95
[2022-08-14] MEDS: IPRATROPIUM BR 0.02% INH SOLN 0.5 MG/2.5 ML VIAL INHALATION ×2 (03:20→08:07)
[2022-08-14] MEDS: ALBUTEROL SULFATE NEB 2.5 MG/3 ML INH INHALATION ×2 (03:20→08:07)
[2022-08-14] MEDS: AMPICILLIN SULB 3 GM/NS 100 ML 3 GM/100 ML VIAL IVPB (05:33)
[2022-08-14 05:34] LABS: Basophils Percent Auto 0.2 % (0.2-1.2); Hematocrit 32.8 % (37.0-47.0); Hemoglobin 11.1 g/dL (12.0-15.0); Immature Granulocyte Absolute 0.25 K/mm3 (0.00-0.031); Immature Granulocyte Percent A 2.3 % (0-0.5); Lymphocytes Absolute Auto 0.85 K/mm3 (0.9-3.2); Lymphocytes Percent Auto 7.7 % (18.3-44.2); Mean Corpuscular HGB Conc 33.8 g/dl (32-36); Mean Corpuscular Hemoglobin 30.7 pg (26-34); Mean Corpuscular Volume 90.6 fl (80-100); Mean Platelet Volume 10.6 fl (7.4-10.4); Monocytes Absolute Auto 0.5 K/mm3 (0.1-0.6); Monocytes Percent Auto 4.2 % (2.6-8.5); Neutrophils Absolute Auto 9.4 K/mm3 (1.3-6.7); Neutrophils Percent Auto 85.6 % (45.5-73.1); Platelet Count Result 282 k/mm3 (150-375); Red Blood Count 3.62 M/mm3 (4.2-5.4); Red Cell Distribution Width 13.5 % (11.5-14.5)
[2022-08-14] MEDS: methylPREDNISolone SOD SUCC 125 MG VIAL 60 MG IV PUSH (05:34)
[2022-08-14 06:03] LABS: Alanine Aminotransferase 19 U/L (6-35); Albumin Level 3.6 g/dL (3.5-5.1); Alkaline Phosphatase 74 U/L (38-126); Anion Gap 18 mmol/L (8-16); Aspartate Amino Transferase 21 U/L (14-36); Bilirubin,Total 0.5 mg/dL (0.2-1.3); Blood Urea Nitrogen 13 mg/dL (7-17); Calcium 7.9 mg/dL (8.4-10.2); Carbon Dioxide 22 mmol/L (22-30); Chloride 100 mmol/L (98-107); Estimated CRCL calculation 67 ml/min; Estimated Glomerular Filt Rate > 60; Glucose 158 mg/dL (65-110); Magnesium 2.3 mg/dL (1.6-2.3); Potassium 3.1 mmol/L (3.4-5.0); Sodium 140 mmol/L (137-145)
[2022-08-14 08:54] LABS: Glucose Point of Care 177 mg/dl (65-105)
[2022-08-14] MEDS: INSULIN GLARGINE (*BKC) 100 UNITS/ML 30 UNITS SUB-Q ×2 (09:40→18:07)
[2022-08-14] MEDS: ENOXAPARIN 40 MG/0.4 ML SYRINGE SUB-Q (09:41)
[2022-08-14] MEDS: buPROPion HCL XL (24 HR) 150 MG TABCR PO (09:42)
[2022-08-14] MEDS: PANTOPRAZOLE SODIUM IV 40 MG VIAL IV PUSH (09:42)
[2022-08-14] MEDS: ATORVASTATIN 40 MG TABLET 80 MG PO (09:42)
[2022-08-14] MEDS: METOPROLOL SUCCINATE EXT REL 12.5 MG TABCR PO (09:42)
[2022-08-14] MEDS: POTASSIUM CHLORIDE 20 MEQ TABLET 40 MEQ PO (09:43)
--- NOTE | 2022-08-14 11:17 | P.PNIM_ITS ---
Progress Note: A&P Assessment and Plan (1) Acute respiratory failure: Qualifiers: Respiratory failure complication: hypoxia Qualified Code(s): J96.01 - Acute respiratory failure with hypoxia Code(s): J96.00 - Acute respiratory failure, unspecified whether with hypoxia or hypercapnia Status: Acute Assessment and Plan: 08/13/22 * pt states she is feeling better today compared to yesterday * pt no longer tripoding * pt on 2L of O2; O2 saturation of 93% * Pt is no longer experiencing labored breathing and is able to complete full sentences. She is experiencing shortness of breath with ambulation but this has also improved since yesterday. * XR chest showed scarring in lung apices * CTA results = bilateral lobar pneumonia vs. aspiration pneumonia * ABG results = anion gap metabolic acidosis * blood cultures pending * supplemental oxygen weaned to maintain a saturation >93% * continue to trend O2 saturation * adjust therapy accordingly 08/14/22- patient reports some dyspnea with exertion and persistent coughing fits. Weaned to room air with spO2 95% at rest. Home O2 eval pending. Improving. (2) Pneumonia: Qualifiers: Pneumonia type: due to unspecified organism Laterality: bilateral Lung location: lower lobe of lung Qualified Code(s): J18.9 - Pneumonia, unspecified organism Code(s): J18.9 - Pneumonia, unspecified organism Status: Acute Assessment and Plan: 08/13/22 * CTA results = bilateral lobar pneumonia vs. aspiration pneumonia * pt put on unasyn 3 Gm/Ns 100 mls @200 mls/hr IVPB Q6hr and azithromycin 500 mg in 150 mls @250 mls/hr IVPB Q24h4 * barium swallow results pending * pt's WBC are trending down * preliminary sputum culture after 48 hrs reveal no growth * blood cultures pending * overnight pt was prescribed nebulizer treatment of Ipratropium [place] 0.5 mg Q6HRT and Solu-Medrol 60 mg IV push Q8hr. Patients BG will be monitored closely with steroid treatment. 08/14/22- No fevers in over 24 hours. WBC 11, but patient has been on IV solumedrol since 08/11/22. occasional FERRERA and SOB following coughing. Sputum thick and white, but more productive. modified barium swallow negative for aspiration. Azithromycin 500 mg given 08/11-08/13. Transition to oral Augmentin 875-125 mg PO BID to complete 7-day abx course. (3) High anion gap metabolic acidosis: Code(s): E87.29 - Other acidosis Status: Acute Assessment and Plan: 08/12/22 * ABG reveals high anion gap metabolic acidosis, anion gap of 25 * prescribed sodium bicarbonate 150 meq in dextrose 1,100 mls @ 75 mls/hr IV cont * high anion gap metabolic acidosis likely caused by infection, lactate within normal limits * Sodium bicarbonate in D5 discontinued due to patients hyperglycemia. Rechecking labs. Will likely restart NaHCO3 in sterile water if HCO3 is still low. * HCO3 was 10 on recheck. Prescribed NaHCO3 150 meq in sterile water 1,100 mls @ 50 mls/hr IV CONT. * plan to recheck labs in the AM 08/13/22 * AM labs reveal bicarb at 17 and anion gap trending down * Plan to continue monitoring, discontinuing bicarb and will reassess this afternoon 08/14/22 Resolving. TCO2 22, AG 18, Sodium 140, K 3.1 and replaced with 60 mEQ PO x1. (4) Nausea & vomiting: Code(s): R11.2 - Nausea with vomiting, unspecified Status: Acute Assessment and Plan: 08/13/22 * pt feeling better * prescribed zofran 4 mg PRN 08/14/22 resolved. (5) Dizziness and giddiness: Code(s): R42 - Dizziness
--- NOTE | 2022-08-14 11:17 | PM.IMPN ---
Progress Note: A&P Assessment and Plan (1) Acute respiratory failure: Qualifiers: Respiratory failure complication: hypoxia Qualified Code(s): J96.01 - Acute respiratory failure with hypoxia Code(s): J96.00 - Acute respiratory failure, unspecified whether with hypoxia or hypercapnia Status: Acute Assessment and Plan: 08/13/22 pt states she is feeling better today compared to yesterday pt no longer tripoding pt on 2L of O2; O2 saturation of 93% Pt is no longer experiencing labored breathing and is able to complete full sentences. She is experiencing shortness of breath with ambulation but this has also improved since yesterday. XR chest showed scarring in lung apices CTA results = bilateral lobar pneumonia vs. aspiration pneumonia ABG results = anion gap metabolic acidosis blood cultures pending supplemental oxygen weaned to maintain a saturation >93% continue to trend O2 saturation adjust therapy accordingly 08/14/22- patient reports some dyspnea with exertion and persistent coughing fits. Weaned to room air with spO2 95% at rest. Home O2 eval pending. Improving. (2) Pneumonia: Qualifiers: Pneumonia type: due to unspecified organism Laterality: bilateral Lung location: lower lobe of lung Qualified Code(s): J18.9 - Pneumonia, unspecified organism Code(s): J18.9 - Pneumonia, unspecified organism Status: Acute Assessment and Plan: 08/13/22 CTA results = bilateral lobar pneumonia vs. aspiration pneumonia pt put on unasyn 3 Gm/Ns 100 mls @200 mls/hr IVPB Q6hr and azithromycin 500 mg in 150 mls @250 mls/hr IVPB Q24h4 barium swallow results pending pt's WBC are trending down preliminary sputum culture after 48 hrs reveal no growth blood cultures pending overnight pt was prescribed nebulizer treatment of Ipratropium [place] 0.5 mg Q6HRT and Solu-Medrol 60 mg IV push Q8hr. Patients BG will be monitored closely with steroid treatment. 08/14/22- No fevers in over 24 hours. WBC 11, but patient has been on IV solumedrol since 08/11/22. occasional FERRERA and SOB following coughing. Sputum thick and white, but more productive. modified barium swallow negative for aspiration. Azithromycin 500 mg given 08/11-08/13. Transition to oral Augmentin 875-125 mg PO BID to complete 7-day abx course. (3) High anion gap metabolic acidosis: Code(s): E87.29 - Other acidosis Status: Acute Assessment and Plan: 08/12/22 ABG reveals high anion gap metabolic acidosis, anion gap of 25 prescribed sodium bicarbonate 150 meq in dextrose 1,100 mls @ 75 mls/hr IV cont high anion gap metabolic acidosis likely caused by infection, lactate within normal limits Sodium bicarbonate in D5 discontinued due to patients hyperglycemia. Rechecking labs. Will likely restart NaHCO3 in sterile water if HCO3 is still low. HCO3 was 10 on recheck. Prescribed NaHCO3 150 meq in sterile water 1,100 mls @ 50 mls/hr IV CONT. plan to recheck labs in the AM 08/13/22 AM labs reveal bicarb at 17 and anion gap trending down Plan to continue monitoring, discontinuing bicarb and will reassess this afternoon 08/14/22 Resolving. TCO2 22, AG 18, Sodium 140, K 3.1 and replaced with 60 mEQ PO x1. (4) Nausea & vomiting: Code(s): R11.2 - Nausea with vomiting, unspecified Status: Acute Assessment and Plan: 08/13/22 pt feeling better prescribed zofran 4 mg PRN 08/14/22 resolved. (5) Dizziness and giddiness: Code(s): R42 - Dizziness and giddiness Status: Acute Assessment and Plan: 08/13/22 pt states this has resolved. 08/14/22 secondary to hypoxia and acute infection. Resolved. (6) Dysuria: Code(s): R30.0 - Dysuria Status: Acute Assessment and Plan: 08/13/22 Patients urine is unchanged from admission no evidence of UTI 08/14/22 Resolved. No urinary complaints. (7) Diabetes: Qualifiers: Diabet
[2022-08-14 12:26] LABS: Glucose Point of Care 246 mg/dl (65-105)
[2022-08-14] MEDS: FLUTICASONE PROPIONATE 0.05% NA SPR 16 GM BTL (*BKC) 1 SPRAY NASAL ×2 (12:52→20:47)
[2022-08-14] MEDS: BENZONATATE 100 MG CAPSULE PO (12:52)
[2022-08-14] MEDS: lisinopriL 20 MG TABLET PO (12:52)
[2022-08-14] MEDS: guaiFENesin 12 HR 600 MG TABCR PO ×2 (12:52→20:46)
[2022-08-14] MEDS: INSULIN ASPART (*BKC) 100 UNITS/ML SUB-Q ×2 (12:58→18:06)
[2022-08-14 17:22] LABS: Glucose Point of Care 246 mg/dl (65-105)
[2022-08-14] MEDS: AMOXICILLIN/CLAVULANATE K 875-125 MG TAB 1 TABLET PO (20:46)
[2022-08-14] MEDS: SALINE 0.65% NAS SOLN 44 ML BTL 1 SPRAY NASAL (20:46)
[2022-08-14 22:06] LABS: Glucose Point of Care 202 mg/dl (65-105)
[2022-08-15 06:00] VITALS: BP 132/56; PULSE 77; RESP 16; TEMP 36.3; O2SAT 93
[2022-08-15 06:43] LABS: Anion Gap 12 mmol/L (8-16); Blood Urea Nitrogen 13 mg/dL (7-17); Calcium 7.9 mg/dL (8.4-10.2); Carbon Dioxide 29 mmol/L (22-30); Chloride 99 mmol/L (98-107); Estimated CRCL calculation 78 ml/min; Estimated Glomerular Filt Rate > 60; Glucose 100 mg/dL (65-110); Sodium 140 mmol/L (137-145)
[2022-08-15 06:48] LABS: Basophils Absolute Auto 0.1 K/mm3 (0.0-0.1); Basophils Percent Auto 0.9 % (0.2-1.2); Hematocrit 34.7 % (37.0-47.0); Hemoglobin 11.5 g/dL (12.0-15.0); Immature Granulocyte Percent A 4.7 % (0-0.5); Lymphocytes Absolute Auto 1.96 K/mm3 (0.9-3.2); Lymphocytes Percent Auto 15.2 % (18.3-44.2); Mean Corpuscular HGB Conc 33.1 g/dl (32-36); Mean Corpuscular Hemoglobin 29.7 pg (26-34); Mean Corpuscular Volume 89.7 fl (80-100); Mean Platelet Volume 10.7 fl (7.4-10.4); Monocytes Percent Auto 7.4 % (2.6-8.5); Neutrophils Absolute Auto 9.2 K/mm3 (1.3-6.7); Neutrophils Percent Auto 71.8 % (45.5-73.1); Platelet Count Result 281 k/mm3 (150-375); Red Blood Count 3.87 M/mm3 (4.2-5.4); Red Cell Distribution Width 13.2 % (11.5-14.5); White Blood Count 12.9 K/mm3 (4.5-10.0)
[2022-08-15 08:38] LABS: Glucose Point of Care 57 mg/dl (65-105)
[2022-08-15 08:55] LABS: Glucose Point of Care 79 mg/dl (65-105)
--- NOTE | 2022-08-15 09:44 | PM.DS ---
DS: Admitting Diagnosis Discharge Date 08/15/2022 1055 Admitting Diagnosis Acute respiratory failure with hypoxia Dizziness Nausea and vomiting DS: Discharge Diagnosis Discharge Diagnosis (1) Acute respiratory failure: Qualifiers: Respiratory failure complication: hypoxia Qualified Code(s): J96.01 - Acute respiratory failure with hypoxia Code(s): J96.00 - Acute respiratory failure, unspecified whether with hypoxia or hypercapnia Status: Acute (2) Pneumonia: Qualifiers: Laterality: bilateral Lung location: lower lobe of lung Pneumonia type: due to unspecified organism Qualified Code(s): J18.9 - Pneumonia, unspecified organism Code(s): J18.9 - Pneumonia, unspecified organism Status: Acute (3) High anion gap metabolic acidosis: Code(s): E87.29 - Other acidosis Status: Acute (4) Nausea & vomiting: Code(s): R11.2 - Nausea with vomiting, unspecified Status: Acute (5) Dizziness and giddiness: Code(s): R42 - Dizziness and giddiness Status: Acute (6) Dysuria: Code(s): R30.0 - Dysuria Status: Acute (7) Diabetes: Qualifiers: Diabetes mellitus complication status: with hyperglycemia Diabetes mellitus care home insulin use: with care home use Diabetes mellitus type: type 2 Qualified Code(s): E11.65 - Type 2 diabetes mellitus with hyperglycemia; Z79.4 - intermodal customer service (current) use of insulin Code(s): E11.9 - Type 2 diabetes mellitus without complications Status: Acute (8) Hypertension: Qualifiers: Hypertension type: primary hypertension Qualified Code(s): I10 - Essential (primary) hypertension Code(s): I10 - Essential (primary) hypertension Status: Chronic (9) GERD (gastroesophageal reflux disease): Qualifiers: Esophagitis presence: without esophagitis Qualified Code(s): K21.9 - Gastro-esophageal reflux disease without esophagitis Code(s): K21.9 - Gastro-esophageal reflux disease without esophagitis Status: Chronic DS: Summary Hospital Course Reason for hospitalization: cough, weakness Hospital Course: Bri Mendieta is a 62 yo female with insulin dependent diabetes, hypertension and previous stroke without residual. She presented to the ED with complaints of cough that started 5-6 days prior to admission and progressively worsened. She has been taking OTC cold and flu medication without relief. She reported associated symptoms of headache, weakness, dizziness, fever, nasal congestion, abdominal pain, nausea, vomiting, and decreased appetite.? Her symptoms are worse at night.? Patient reported this is the worse I've ever felt in my life on admission. Her abdominal pain and nausea wax and wane and she was unsure if it was from not eating or from medication.?In the ED, her vitals were temp 97.4F, HR 82, RR 20, BP 114/49, and spO2 94% on 4L nasal cannula. She does not wear oxygen at home. Chest x-ray showed mild scarring of the lung apices but was otherwise without acute infection. She was admitted to the medical floor for further management and evaluation of acute respiratory failure with hypoxia. Acute respiratory failure & multilobar pneumonia: She presented to the hospital with c/o cough, weakness, fever, anorexia, MAN, N/V and dizziness. Chest x-ray was without acute abnormality, however, given her respiratory symptoms, WBC 14, and hypoxemia PaO2 71 on ABG, she was started on IV Rocephin and Azithromycin Q24 hours. CTA chest demonstrated bilateral lobar pneumonia versus aspiration pneumonitis. Given the patient's nausea and vomiting complaint. Antibiotics were expanded to cover possible aspiration pneumonia with Unasyn IV Q6 hours. Azithromycin was continued for atypical coverage. She was made NPO and speech therapy was consulted. She underwent modified barium swallow, which was negative for s/s aspiration. Blood cultures were negative x2 sets. Sputum cu
[2022-08-15] MEDS: POTASSIUM CHLORIDE 20 MEQ TABLET 60 MEQ PO (09:56)
[2022-08-15] MEDS: guaiFENesin 12 HR 600 MG TABCR PO (09:56)
[2022-08-15] MEDS: PANTOPRAZOLE 40 MG TABLET PO (09:56)
[2022-08-15] MEDS: ATORVASTATIN 40 MG TABLET 80 MG PO (09:56)
[2022-08-15] MEDS: AMOXICILLIN/CLAVULANATE K 875-125 MG TAB 1 TABLET PO (09:57)
[2022-08-15] MEDS: ENOXAPARIN 40 MG/0.4 ML SYRINGE SUB-Q (09:57)
[2022-08-15] MEDS: lisinopriL 20 MG TABLET PO (09:57)
[2022-08-15] MEDS: buPROPion HCL XL (24 HR) 150 MG TABCR PO (09:57)
[2022-08-15] MEDS: FLUTICASONE PROPIONATE 0.05% NA SPR 16 GM BTL (*BKC) 1 SPRAY NASAL (09:58)
== END 2022-08-15 11:52 | disposition home or self-care (01) | DRG 194 ==
LOC: ANHED 14:20 → ANH2MED 18:44
PROVIDERS: Emergency Medicine; Family Medicine; Internal Medicine Critical Care Medicine; Admitting Provider Hospitalist; Emergency Provider Emergency Medicine; PCP Internal Medicine; Visit Provider Nurse Practitioner Family
DX: J18.9 Pneumonia, unspecified organism (principal); E87.29 Other acidosis; Z20.822 Contact with and (suspected) exposure to COVID-19; E11.65 Type 2 diabetes mellitus with hyperglycemia; R42 Dizziness and giddiness; R11.2 Nausea with vomiting, unspecified; R30.0 Dysuria; I10 Essential (primary) hypertension; K21.9 Gastro-esophageal reflux disease without esophagitis; E78.00 Pure hypercholesterolemia, unspecified; Z79.4 Long term (current) use of insulin; Z79.899 Other long term (current) drug therapy
CPT/HCPCS: 36415; 36600; 71045; 71046; 71275; 74174; 80048; 80053; 81001; 82375; 82805; 82948; 83050; 83605; 83735; 83880; 84145; 84484; 85025; 85610; 85730; 86140; 87040; 87070; 87205; 87502; 87637; 92610; 92611; 93005; 94640; 96361; 96365; 96367; 96372; 96375; 99285; A9270; C9113; G0378; J0295; J0456; J0696; J1650; J1815; J2405; J2930; J7030; J7070; Q9967; U0003; U0005

== ENCOUNTER 2022-08-26 10:57 | Outpatient (CLI) | payer MEDICARE, SELFPAY ==
--- NOTE | ~2022-08-26 | XR_ITS ---
EXAMINATION: XR chest 2V 08/26/2022 11:21 INDICATION: Pneumonia. Cough. Shortness of breath. PROCEDURE: 2 view chest COMPARISON: 08/15/2022 FINDINGS: The lungs are clear. The cardiomediastinal silhouette is within normal limits. There are no pleural effusions. There is no pneumothorax suspected. IMPRESSION: 1: NO ACUTE CARDIOPULMONARY DISEASE. Reviewed, dictated and finalized at location A. 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
== END 2022-08-26 10:58 | disposition home or self-care (01) ==
PROVIDERS: PCP Internal Medicine; Visit Provider Nurse Practitioner Family
DX: J18.9 Pneumonia, unspecified organism (principal)
CPT/HCPCS: 71046

== ENCOUNTER 2023-03-23 12:36 | Emergency (ER) | payer MEDICARE, SELFPAY ==
--- NOTE | ~2023-03-23 | CT_ITS ---
EXAMINATION: CT brain wo con DATE: 03/23/2023 INDICATION: Dizziness. Numbness and headache. COMPARISON: None. FINDINGS: There are scattered areas of low attenuation in the cerebral white matter. There is no intracranial h emorrhage, acute infarction, or abnormal intracranial mass lesion. The ventricles are normal in size. There are likely changes of ocular lens replacement surgeries. There is mild mucosal thickening in t he paranasal sinuses. The mastoid air cells are normal. IMPRESSION: 1. Mild nonspecific cerebral white matter disease, which likely represents chronic small vessel ische jc disease. Reviewed, dictated and finalized at location A. IMPRESSION: 1. Mild nonspecific cerebral white matter disease, which likely represents solutions analyst mary small vessel ischemic disease.
--- NOTE | ~2023-03-23 | CT_ITS ---
EXAMINATION: CTA brain carotid DATE: 04/22/2023 INDICATION: Dizziness. Numbness and headache. TECHNIQUE: Computed tomographic angiography (CTA) of the head was performed with 100 mL Omnipaque-350 intravenous contrast. CTA of the neck was performed with intravenous contrast. Automated exposure co ntrol and iterative reconstruction technique were employed. The dose-length product was 1593 mGy-cm. Maximum intensity projection and volume rendered 3D-reconstructions were created by the technologist on a separate workstation. COMPARISON: head CT 03/23/23 FINDINGS: HEAD CTA: There are scattered areas of low attenuation in the cerebral white matter. There is no intr acranial hemorrhage, acute infarction, or abnormal intracranial mass lesion. The ventricles are tarah l in size. There are likely changes of ocular lens replacement surgeries. There is mild mucosal thick ening in the paranasal sinuses. The mastoid air cells are normal. Right vertebral artery is dominant. There is no significant stenosis of basilar artery or the posterior cerebral arteries. The posterior communicating arteries are normal. There is no significant stenosis of the intracranial internal car otid arteries or anterior or middle cerebral arteries. Anterior communicating artery is normal. There is no aneurysm. NECK CTA: There is mild scarring at the lung apices. There are no pathologically enlarged lymph nodes . There is no significant stenosis of the vertebral arteries. There is mild plaque in the proximal in ternal carotid arteries. There is 0% stenosis of the proximal right internal carotid artery relative to normal distal artery lumen diameter (NASCET criteria). There is 0% stenosis of the proximal left i nternal carotid artery relative to normal distal artery lumen diameter. There is severe cervical spon dylosis. IMPRESSION: 1. Mild nonspecific cerebral white matter disease, which likely represents chronic small vessel ische jc disease. 2. No aneurysm or significant intracranial arterial stenosis. 3. 0% stenosis of the proximal internal carotid arteries relative to normal distal artery lumen diame ters (NASCET criteria). Reviewed, dictated and finalized at location A. IMPRESSION: 1. 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 2. No aneurysm or significant intracranial arterial stenosis. 3. 0% stenosis of the proximal internal carotid arteries relative to normal dis brianna artery lumen diameters (NASCET criteria).
--- NOTE | ~2023-03-23 | XR_ITS ---
EXAMINATION: XR chest 1V portable INDICATION: Weakness, stroke protocol TECHNIQUE: Portable AP chest at 1259 hours COMPARISON: None available FINDINGS: The lungs are free of acute opacities. No pleural effusion or pneumothorax. The cardiomedia stinal silhouette is normal. IMPRESSION: 1. No acute cardiopulmonary abnormality. Reviewed, dictated and finalized at location A.
[2023-03-24 10:22] LABS: Anion Gap 8 mmol/L (8-16); Blood Urea Nitrogen 12 mg/dL (7-17); Carbon Dioxide 33 mmol/L (22-30); Chloride 99 mmol/L (98-107); INR 0.9; Partial Thromboplastin Time 28.4 SECONDS (22.3-36.8); Potassium 3.7 mmol/L (3.4-5.0); Prothrombin Time 12.7 Seconds (11.1-14.7); Sodium 140 mmol/L (137-145)
[2023-03-24 10:23] LABS: Alanine Aminotransferase 25 U/L (6-35); Albumin Level 4.9 g/dL (3.5-5.1); Alkaline Phosphatase 105 U/L (38-126); Aspartate Amino Transferase 29 U/L (14-36); Bilirubin,Total 0.8 mg/dL (0.2-1.3); Calcium 9.7 mg/dL (8.4-10.2); Estimated Glomerular Filt Rate > 60; Glucose 77 mg/dL (65-110); Magnesium 2.3 mg/dL (1.6-2.3); Total Protein 8.8 g/dL (6.3-8.2); Troponin I < 0.012 ng/mL (0.000-0.034)
[2023-03-24 12:08] LABS: Glucose Point of Care 75 mg/dl (65-105)
[2023-03-24 12:08] LABS: Glucose Point of Care 86 mg/dl (65-105)
[2023-03-24 12:08] LABS: Glucose Point of Care 66 mg/dl (65-105)
[2023-03-24 13:17] LABS: Basophils Absolute Auto 0.1 K/mm3 (0.0-0.1); Basophils Percent Auto 0.7 % (0.2-1.2); Eosinophils Absolute Auto 0.3 K/mm3 (0-0.3); Eosinophils Percent Auto 2.5 % (0-4.4); Hematocrit 45.5 % (37.0-47.0); Hemoglobin 15.1 g/dL (12.0-15.0); Immature Granulocyte Absolute 0.04 K/mm3 (0.00-0.031); Immature Granulocyte Percent A 0.3 % (0-0.5); Lymphocytes Absolute Auto 2.62 K/mm3 (0.9-3.2); Lymphocytes Percent Auto 19.2 % (18.3-44.2); Mean Corpuscular HGB Conc 33.2 g/dl (32-36); Mean Corpuscular Hemoglobin 30.3 pg (26-34); Mean Corpuscular Volume 91.4 fl (80-100); Mean Platelet Volume 10.1 fl (7.4-10.4); Monocytes Absolute Auto 0.7 K/mm3 (0.1-0.6); Monocytes Percent Auto 4.8 % (2.6-8.5); Neutrophils Absolute Auto 9.9 K/mm3 (1.3-6.7); Neutrophils Percent Auto 72.5 % (45.5-73.1); Platelet Count Result 320 k/mm3 (150-375); Red Blood Count 4.98 M/mm3 (4.2-5.4); Red Cell Distribution Width 12.4 % (11.5-14.5); White Blood Count 13.7 K/mm3 (4.5-10.0)
[2023-03-24 13:54] LABS: Estimated Glomerular Filt Rate > 60
== END 2023-03-23 14:53 | disposition home or self-care (01) ==
LOC: ANHED 17:59
PROVIDERS: Emergency Provider Emergency Medicine; PCP Internal Medicine
DX: E11.649 Type 2 diabetes mellitus with hypoglycemia without coma (principal); Z86.73 Personal history of transient ischemic attack (TIA), and cerebral infarction without residual deficits; Z79.4 Long term (current) use of insulin
CPT/HCPCS: 36415; 70450; 70496; 70498; 71045; 80053; 82565; 82948; 83735; 84484; 85025; 85610; 85730; 99284; J1200; J2765; Q9967

== ENCOUNTER 2024-02-29 11:04 | Outpatient (CLI) | payer OTHER, SELFPAY ==
--- NOTE | ~2024-02-29 | US_ITS ---
EXAMINATION: US soft tissue head and neck DATE: 02/29/2024 11:30 INDICATION: Tender palpable lump at the right neck TECHNIQUE: Multiple grayscale and Doppler ultrasound images of the region of concern at the right [facility] k were obtained. COMPARISON: None FINDINGS: There are a few normal-sized and appearing right jugular chain lymph nodes with normal central fatty cheryl in the region of concern, the largest measuring 1.8 x 1.7 x 0.7 cm. The right thyroid lobe measu res 3.5 x 1.0 x 1.0 cm. The left thyroid lobe measures 3.5 x 1.2 x 1.1 cm. There is a 4 mm solid hypo echoic nodule with ill-defined margins. (TI-RADS 4, moderately suspicious , FNA if >=1.5 cm, annual f ollowup is >=1 cm) at the medial upper pole the right thyroid lobe. There is a 7 mm solid isoechoic p olyp than wide nodule with ill-defined margins in the inferior right thyroid lobe also TI RADS 4. No pathologically enlarged lymphadenopathy or other abnormal masses or fluid collections identified. IMPRESSION: 1. A few normal right internal jugular chain lymph nodes at the region of concern. No pathologically enlarged lymphadenopathy or other abnormal masses identified. 2. A couple subcentimeter TI RADS 4 nodules in the right thyroid lobe which are below size criteria f or either biopsy or follow-up. Reviewed, dictated and finalized at location A. IMPRESSION: 1. A few normal right internal jugular chain lymph nodes at the region of timothy rn. No pathologically enlarged lymphadenopathy or other abnormal masses identif ied. 2. A couple subcentimeter TI RADS 4 nodules in the right thyroid lobe which are below size criteria for either biopsy or follow-up.
== END 2024-02-29 11:05 ==
LOC: MICIMG 11:05
PROVIDERS: PCP Internal Medicine; Visit Provider Internal Medicine
DX: R22.1 Localized swelling, mass and lump, neck (principal)
CPT/HCPCS: 76536

== ENCOUNTER 2025-08-14 10:14 | Outpatient (CLI) | payer OTHER, SELFPAY ==
--- NOTE | ~2025-08-14 | DEXA_ITS ---
Bone Density Report Name: KIMMY FARMER Age: 65 Sex: Female Ethnicity: White Date of : 1960 Indication: postmenopausal; screening for osteoporosis; Referring Provider: Johann, Song Study: Bone densitometry was performed. Exam Date: August 14, 2025 Accession number: [id number] Bone Density: Region BMD T-score Z-score Classification AP Spine(L1-L4) 0.956 -0.8 1.1 Normal Femoral Neck (Left) 0.658 -1.7 -0.1 Osteopenia Total Hip (Left) 0.889 -0.4 0.9 Normal Femoral Neck (Right) 0.650 -1.8 -0.2 Osteopenia Total Hip (Right) 0.841 -0.8 0.5 Normal Total Hip Mean 0.865 -0.6 0.7 Normal World Health Organization criteria for BMD impression classify patients as: Normal (T-score at or above -1.0), Osteopenia (T-score between -1.0 and -2.5), or Osteoporosis (T-score at or below -2.5). 10-year Fracture Risk(1): Major Osteoporotic Fracture 9.9% Hip Fracture 1.4% Reported Risk Factors: [place] (), Neck BMD=0.658, BMI=28.5 (1) FRAX(R) Version 3.08. Fracture probability calculated for an untreated patient. Fracture probability may be lower if the patient has received treatment. Clinical Information Provided by Patient: Has used the following medications: Vitamin D Patient maximum height was 60 Menopause Age: 52 No regular weight bearing exercise Drinks caffeinated beverages Onset of menses at age 8 Number of children 2 Impression: The patient has low bone mass, based on the Right Femoral Neck T-score. The patient has an estimated ten-year risk of hip fracture of 1.4% and an estimated ten-year risk of major fracture of 9.9%, based on the WHO FRAX algorithm. Discussion: BONE DENSITY IS LOW AT ONE OR MORE SKELETAL SITES. This patient's lowest T-score is low at one or more skeletal sites. It meets the World Health Organization's (WHO) criteria for ?low bone mass? (T-score between -1.0 and -2.5). The patient's 10-year risk of fracture as calculated by FRAX is less than the threshold where pharmacological therapy is recommended by the National Osteoporosis Foundation (NOF). However, all treatment decisions require clinical judgment and consideration of individual patient factors, including patient preferences, comorbidities, previous drug use, risk factors not captured in the FRAX model (e.g., frailty, falls, vitamin D deficiency, increased bone turnover, interval significant decline in bone density) and possible under or overestimation of fracture risk by FRAX. The patient should follow a healthful lifestyle (good nutrition with adequate calcium and vitamin D, and appropriate weight-bearing exercise). Follow-Up: Consider repeating this study in 2 to 3 years to reassess this patient's status, or sooner if there is some new clinical indication. Reported by: JENNIFFER on 08/14/2025 10:41:00 AM. Reviewed, dictated and finalized at location A.
--- NOTE | ~2025-08-14 | MM_ITS ---
EXAMINATION: MM screening jose BI w debi HISTORY: Screening TECHNIQUE: Craniocaudal and mediolateral oblique 3-D tomosynthesis images were obtained and synthetic 2-D images were generated. CAD analysis was submitted and interpreted. COMPARISON: None provided BREAST PARENCHYMAL COMPOSITION: There are scattered areas of fibroglandular density. FINDINGS: There is no evidence of suspicious mass, calcification, or architectural distortion to suggest malignancy in either breast. IMPRESSION: 1. No mammographic evidence of malignancy. 2. Recommend routine screening mammography in one year. BI-RADS Category 1: Negative Reviewed, dictated and finalized at location B. ING SUPERVISOR
== END 2025-08-14 10:15 | disposition home or self-care (01) ==
LOC: MICIMG 10:18
PROVIDERS: PCP Internal Medicine; Visit Provider Internal Medicine
DX: Z12.31 Encounter for screening mammogram for malignant neoplasm of breast (principal); Z78.0 Asymptomatic menopausal state; M85.852 Other specified disorders of bone density and structure, left thigh; M85.851 Other specified disorders of bone density and structure, right thigh
CPT/HCPCS: 77063; 77067; 77080